=== PATIENT | female | born 1995 | race Hispanic/Latino ===

== ENCOUNTER 2020-11-30 17:22 | Emergency (ER) | payer SELFPAY ==
[2020-11-30] MEDS ORDERED: IBUPROFEN 400 MG TAB ONE (20:46)
[2020-11-30] MEDS ORDERED: CYCLOBENZAPRINE 10 MG TAB ONE (20:46)
[2020-11-30] MEDS ORDERED: LIDOCAINE 4% PATCH ONE (20:47)
--- NOTE | 2020-11-30 21:05 | RAD REPORT ---
EXAM DESCRIPTION: RAD - Shoulder Left 2 View - 11/30/2020 8:59 pm CLINICAL HISTORY: Left shoulder pain FINDINGS: No fracture or dislocation is seen.
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
[2020-11-30] MEDS ORDERED: HYDROCODONE/APAP 5/325 MG TAB ONE (22:00)
[2020-11-30 22:51] VITALS: TEMP 98.4
[2020-11-30 22:52] VITALS: O2SAT 100
[2020-11-30 22:54] VITALS: BP 125/85
== END 2020-11-30 21:51 | disposition home or self-care (01) ==
LOC: ER 17:22
DX: S46.812A Strain of other muscles, fascia and tendons at shoulder and upper arm level, left arm, initial encounter (principal); S16.1XXA Strain of muscle, fascia and tendon at neck level, initial encounter; V43.53XA Car driver injured in collision with pick-up truck in traffic accident, initial encounter; I10 Essential (primary) hypertension
CPT/HCPCS: 99283